=== PATIENT | female | born 1945 | race Caucasian/White ===

== ENCOUNTER → 2022-01-27 12:58 | Outpatient (CLI) | payer MEDICARE, BC, OTHER, SELFPAY ==
[2022-01-27 16:43] LABS: COVID19 -Nasal RAPID Negative (Negative)
== END ==
PROVIDERS: Visit Provider Nurse Practitioner Family
DX: Z20.822 Contact with and (suspected) exposure to COVID-19 (principal)
CPT/HCPCS: 87635; C9803

== ENCOUNTER 2022-01-28 09:03 | Day surgery (SDC) | payer MEDICARE, BC, OTHER, SELFPAY ==
[2022-01-20 09:49] VITALS: BMI 37.1
[2022-01-28] VITALS (15 sets, daily range): BP systolic 121–158; BP diastolic 48–79; PULSE 48–64; RESP 11–18; TEMP 35.8–36.6; O2SAT 92–100; BMI 37.1
--- NOTE | 2022-01-28 06:00 | DI.RAD.S_ITS ---
PROCEDURE: XR KNEE LT 1TO2V INDICATIONS: left TKA TECHNIQUE: 2 view(s) of the knee acquired. COMPARISON: None. FINDINGS: Bones: Patient is status post knee joint arthroplasty. Hardware components are in expected positions. Visualized bony structures are intact. Soft tissues: Overlying postoperative changes are noted. IMPRESSION: Postop changes from left total knee arthroplasty with anatomic left knee alignment. Dictated by: Robert Arnold M.D. on 01/28/2022 at 14:55 Approved by: Robert Arnold M.D. on 01/28/2022 at 14:55
[2022-01-28] MEDS: ACETAMINOPHEN 325 MG TABLET 975 MG PO (10:28)
[2022-01-28] MEDS: VANCOMYCIN 1,000 MG/200 ML PIGGYBACK 200 MG IV (10:30)
--- NOTE | 2022-01-28 10:43 | PM.PREOP ---
Pre-operative Note COVID-19 COVID-19 status: Negative Interval Note History & Physical reviewed/Exam performed by Physician: Yes Changes to H&P: No
--- NOTE | 2022-01-28 10:56 | PM.OP.1 ---
Operative Date/Time/Diagnoses Date of procedure: 01/28/22 Time of procedure: 11:30 Pre-op diagnosis: left knee OA Post-op diagnosis: same Procedure & Clinicians Procedure: Left total knee arthroplasty Same procedure as scheduled: Yes Indications: The patient has had progressively worsening left knee pain with radiographic changes consistent with arthritis. Non-operative management has failed and the patient has requested total knee replacement. The risks, benefits and alternatives to surgery were discussed with the patient prior to proceeding. Risks discussed included, but were not limited to, failure to relieve pain, stiffness, infection, nerve damage, deep venous thrombosis, pulmonary embolism, stroke, coma, heart attack, permanent paralysis and , as well as the potential need for eventual revision of the prosthetic. Surgeon: Roya Beatty Fuel Buyer: Herlinda Curran Anesthesia Type: General and Spinal Operative Notes Findings: Severe left knee osteoarthritis, adequate stability Closure Type: primary Specimen(s): none sent Prosthetic devices, grafts, tissues, transplants, or devices: Journey BCS 2 size 5 femur, size 5 tibia, +10 poly, 35 mm patella Applied: drain(s) Estimated Blood Loss (mL): 250 Blood products transfused: none Tourniquet time (min): 85 Procedure in detail: The patient was seen in the pre-operative area, where the patient identified the left knee as the operative site and this was marked with my initials. The patient received pre-operative antibiotics, and was taken to the operating room and placed on the operative table in the supine position. After satisfactory anesthesia, a multimedia programmer out was performed. The left leg was encircled with a tourniquet about the proximal thigh, and the leg was prepared from the toes to the tourniquet with ChloroPrep in the usual fashion and draped through sterile drapes. The leg was elevated and exsanguinated with Eschmark bandage and the tourniquet inflated to [250] mmHg pressure. The knee was approached through an approximately 18 cm incision centered over the patella and carried into the knee through a medial parapatellar arthrotomy. A portion of the medial and lateral meniscus was resected. Soft tissue was carefully mobilized around the patella the patella was measured with a caliper. Bone was resected from the patella and the patellar height was reconstituted with up an appropriate sized patellar component. A cover was then placed on the patella. A small amount of additional medial and lateral meniscus was resected. The distal femur was cut at 5?. A [+2] cut was used. It looked like an appropriate distal femoral cut and the cut was made without difficulty. An extramedullary guide was used for the tibial cut. 10 mm was resected off the least affected side.The tibia was prepared. The rotation was assessed. The patient was placed in extension residual medial and lateral meniscus as well as any residual bone was carefully resected. [No] additional tibia was resected. Hemostasis was achieved especially posteriorly. Additional local was injected into the posterior capsule. The extension gap was assessed and additional releases for gap balancing were performed as necessary. It was checked with the gap sorting cows worker. The femoral component was trial was placed and the notch was finished. The rotation was assessed and the appropriate size femoral guide was placed on the distal femur and finishing cuts were made. There was no evidence of notching. The anterior, posterior and chamfer cuts were then made. The posterior osteophytes and soft tissues were then removed. The posterior capsule was injected with part of a mixture of 60 ml 0.25% Marcaine mixed with 20 ml Exparel for post operative pain control. The remainder of this mixture was injected into the capsule and subcutaneous tissues during cement curing. The tibial and femoral components were then placed and the knee placed through a range of motion. Range of motion was [0-130], with good stability throughout the range. The trials were then removed, and the tibia was finished. The bone was prepared with pulsatile lavage, and dried with a sponge. Cement was applied and the final prosthetics placed. Excess cement was removed during and after cement curing. A brief Betadine soak was performed. After confirming there was no extruded cement posteriorly, the final tibial insert was placed. The knee was copiously irrigated and the tourniquet deflated. Hemostasis was obtained with the Bovie. A drain was placed and brought out superolaterally. The capsule was closed with interrupted nonabsorbable suture. The subcutaneous layer was closed with barbed sutures, and the skin with a running 3-0 V-Lock suture and Surgical glue. An P cupdressing was applied and the patient was taken to recovery having tolerated the procedure well. Complications: none Post-operative Condition: stable Disposition: Acute Care Plan for aftercare: The patient will be maintained on a standard total knee replacement protocol with weight bearing as tolerated. The patient will receive Eliquis and sequential compression devices for DVT prophylaxis. The patient will be discharged home when safe for the home environment.
[2022-01-28] MEDS: CEFAZOLIN 2 GM/20 ML SYRINGE IV ×2 (11:57→20:15)
[2022-01-28] MEDS: TRANEXAMIC ACID 1,000 MG VIAL 2000 MG INJ ×2 (11:59→13:41)
--- NOTE | 2022-01-28 12:17 | SUR.OPER ---
Supine on padded OR bed. Pillow under head, arms secured on padded armboards <90 degree abduction. Safety belt across torso. Non-operative leg secured with tape over blanket over lower leg. Operative leg secured in DeMayo/Ajit/Nathe positioner. Foam padded brace at thigh of operative leg.
[2022-01-28] MEDS: BUPIVACAINE LIPOSOME 266 MG/20 ML VIAL INJ (12:26)
[2022-01-28] MEDS: BUPIVACAINE 0.25% (PF) 60 ML, EPINEPHrine 0.3 MG INJ (12:26)
[2022-01-28] MEDS: LACTATED RINGERS 1,000 ML 42 ML IV (12:43)
[2022-01-28] MEDS: HYDROMORPHONE 2 MG INJ 0.5 MG IV ×4 (14:30→14:59)
[2022-01-28] MEDS: ONDANSETRON 4 MG/2 ML INJ IV (14:30)
[2022-01-28] MEDS: LACTATED RINGERS 1,000 ML 100 ML IV (15:40)
[2022-01-28] MEDS: HYDROMORPHONE 2 MG TABLET PO (16:03)
[2022-01-28] MEDS: ACETAMINOPHEN 325 MG TABLET 650 MG PO ×2 (16:03→20:26)
[2022-01-28] MEDS: IBUPROFEN 400 MG TABLET PO ×2 (18:44→20:25)
--- NOTE | 2022-01-28 19:45 | PC.NURSE ---
Pt arrived from PACU at 1535 A&Ox3, slightly lethargic, easily awakened but dozing off. She initially c/o pain to L knee and is medicated with PRN mediations with good effect, later she reports heaviness to LLE, able to wiggle toes, ankle waves and +CMS to LLE. She tolerates about 25% of dinner, she is placed on 2 L NC. RT notified of SRINIVASA with CPAP machine. Endorsed to oncoming shift patient not yet voided since arriving from PACU. VSS, afebrile. Pt using IS this evening. IVF LR at 100 ml/hr.
[2022-01-28] MEDS: SODIUM CHLORIDE 0.9% FLUSH 10 ML IV (20:15)
[2022-01-28] MEDS: DOCUSATE 100 MG CAPSULE PO (20:26)
[2022-01-29 01:11] VITALS: BP 129/57; PULSE 57; RESP 16; TEMP 36.5; O2SAT 100
[2022-01-29] MEDS: IBUPROFEN 400 MG TABLET PO ×3 (04:37→12:44)
[2022-01-29] MEDS: CEFAZOLIN 2 GM/20 ML SYRINGE IV (04:39)
[2022-01-29] MEDS: LACTATED RINGERS 1,000 ML 100 ML IV (04:47)
[2022-01-29 06:26] VITALS: BP 126/54; PULSE 56; RESP 15; TEMP 36; O2SAT 98
[2022-01-29 06:30] LABS: Hematocrit 33.6 % (36-46); Hemoglobin 11.1 g/dL (12.0-16.0)
--- NOTE | 2022-01-29 07:00 | PC.NURSE ---
Pt unable to urinate, straight cath produced 350 mls clear, yellow urine.
--- NOTE | 2022-01-29 07:57 | PM.PNPO.1 ---
Subjective Subjective Date Patient Seen: 01/29/22 Time Patient Seen: 07:57 Interval history: Pain is moderate. Denies fever or chills. No nausea or vomiting. Exam Vital Signs (past 8 hours): - 01/29/22 01:11 01/29/22 06:26 Temperature 97.7 F 96.8 F L Pulse Rate 57 L 56 L Respiratory Rate 16 15 Blood Pressure 129/57 L 126/54 L Pulse Oximetry 100 98 Oxygen Delivery Method Nasal Cannula Oxygen Flow Rate 0 Narrative Exam Narrative: 77-year-old female resting comfortably in bed in no apparent distress. Dressing is Clean, dry, intact.. Motor functions intact bilateral lower extremities. Sensation grossly intact to light touch bilateral lower extremities. Const General: cooperative Nutritional Appearance: overweight (BMI 37) Orientation: alert and awake Resp Effort & Inspection: normal respiratory effort Objective Labs Result Diagrams: 01/29/22 05:56 Labs: Laboratory Results - last 24 hr 01/29/22 05:56 Hgb 11.1 L Hct 33.6 L PFSH Medical History Afib Depression Diabetes DJD (degenerative joint disease) Hearing loss HTN (hypertension) Neuropathy Osteoarthritis Skin cancer Sleep apnea Vertigo Surgical History History of carpal tunnel surgery of right wrist Hx of cholecystectomy Hx of thumb surgery Social History household members: spouse and children Smoking Status: Never smoker alcohol intake: former Assessment & Plan Post-op Postoperative Procedures: Procedures Operation Date: 01/28/22 11:15 Actual Procedure Side Surgeon p Total Knee Arthroplasty Left Roya Beatty MD Postoperative day: 1 Postoperative status: doing well Postoperative status narrative: Patient progressing as expected status post total knee replacement, left Postoperative plan narrative: Multimodal pain management Mobilize with physical therapy Patient will be maintained on standard total knee replacement protocol with weight-bearing as tolerated. Eliquis and SCDs for DVT prophylaxis. Possible discharge home today or tomorrow Quality VTE Deep Vein Thrombosis/Pulmonary Embolism Present on Admission: No
[2022-01-29] MEDS: ACETAMINOPHEN 325 MG TABLET 650 MG PO ×2 (09:03→15:26)
[2022-01-29] MEDS: FUROSEMIDE 20 MG TABLET PO (09:04)
[2022-01-29] MEDS: LOSARTAN 25 MG TABLET PO (09:04)
[2022-01-29] MEDS: METOPROLOL ER 25 MG TABLET PO (09:04)
[2022-01-29] MEDS: POTASSIUM CHLORIDE 20 MEQ TAB PO (09:04)
[2022-01-29] MEDS: METFORMIN XR 500 MG TABLET 750 MG PO (09:05)
[2022-01-29] MEDS: DOCUSATE 100 MG CAPSULE PO (09:05)
[2022-01-29] MEDS: OXYCODONE IR 5 MG TABLET PO (09:07)
[2022-01-29] MEDS: SODIUM CHLORIDE 0.9% FLUSH 10 ML IV (09:12)
[2022-01-29] MEDS: MAGNESIUM OXIDE 400 MG TABLET 800 MG PO (09:13)
[2022-01-29 09:36] VITALS: BP 145/73; PULSE 60
--- NOTE | 2022-01-29 10:15 | PT.IIE ---
Current Diagnoses Unilateral primary osteoarthritis, left knee (01/28/22) Surgery Performed Operation Date: 01/28/22 11:15 Actual Procedures p Total Knee Arthroplasty(Left) - Roya Beatty MD Medical History (Last Reviewed 01/29/22 @ 07:58 by Rad Roth PA-C) Afib Depression Diabetes DJD (degenerative joint disease) Hearing loss HTN (hypertension) Neuropathy Osteoarthritis Skin cancer Sleep apnea Vertigo Physical Therapy Inpatient Evaluation/Re-Eval M1 PT/OT-IP Prior Functional Status Start: 01/29/22 12:45 Freq: NEEDED Status: Active Protocol: Document 01/29/22 10:15 AB (Rec: 01/29/22 12:57 AB [id number]) Medical Review Prior Functional Status Medical History Reviewed Yes Communication able to make needs known Mobility and Gait pt stated that she is modified independent with all mobilities and ambulation without AD but tends to furniture cruise and stated that when she is outdoors, she is very cautious with walking Social History Household Members spouse Living Arrangements House Number of Floors (Floors) Two Floors Number of Stairs To Enter/Railing? lives on a split level house: 13 steps with R rail ascending to get to main level of the house where pt will stay Home Environment Standard Height Toilet,Walk in Shower Home Equipment Front Wheel Walker,Straight Cane,Raised Toilet Seat w/ Armrests,Shower Seat with Backrest,Hand Held Shower Employment Status Retired Additional Social History Comment stated that her son will stay for a few days to assist her as well M2 PT-IP Current Condition Start: 01/29/22 12:45 Freq: NEEDED Status: Active Protocol: Document 01/29/22 10:15 AB (Rec: 01/29/22 12:57 AB [id number]) Physical Therapy Current Condition Current Condition Evaluation Date 01/29/22 Treatment Diagnosis s/p L TKA; difficulty in walking Onset Date 01/28/22 M3 PT-IP Subjective Start: 01/29/22 12:45 Freq: NEEDED Status: Active Protocol: Document 01/29/22 10:15 AB (Rec: 01/29/22 12:57 AB [id number]) Subjective Physical Therapy Visit Type Type Initial Evaluation Visit Start Time 10:15 Visit Stop Time 10:50 Total Visit Minutes 35 Number of BULB PACKER Visits 0 Physical Therapy Visit Comments Patient Comments agreeable to do PT Therapy Pain Assessment Pain When Pain Assessed At Rest Pain Present Pain Present Pain Reported Location Left Knee Intensity 2 Scale Used increases to 7/10 with mobility Pain Behaviors Facial Grimacing,Guarding, Holding Area Pain Management Techniques Modification of Treatment,Re- positioning,Timing of Activity with Medications M4 PT-IP Mobility and Gait Start: 01/29/22 12:45 Freq: NEEDED Status: Active Protocol: Document 01/29/22 10:15 AB (Rec: 01/29/22 12:57 AB [id number]) PT-Bed Mobility Assessment Supine to Sit Supine to Sit Standby Assistance PT-Transfer Assessment Sit to and From Stand Sit to and from Stand Moderate Assistance,1 Person Assistance,Use of Upper Extremities Equipment Transfer Assistive Device Gait Belt,Front Wheeled Walker Orthotic/Prosthetic Devices or Brace: No Transfers Transfer Destination Bed,Toilet Transfer Technique ambulated Transfer Ability Level of Assist Moderate Assistance,1 Person Assistance,Use of Upper Extremities Comments Mobility Comments pt completed supine to sit SBA . able to sit on EOB SBA. completed sit to stand mod A and cues. ambulated in room ~ 20 ft using FWW mod A and cues with slight L knee buckling and cued for quads activation. pt also presents with heavy UE weight bearing on FWW for support. pt sat on chair. c/o increase pain. pt then requested to use the toilet. completed sit to stand from the chair mod A and ambulated to the toilet using FWW mod A and cues. positioned call light next to pt and instructed to ask for assistance when ready and pt understood. informed NAC that pt is using the toilet. Gait Assessment Gait Gait Assistance Required: Moderate Assistance Distance (Feet) 20 Able to Maintain Weight Bearing Status Yes During Gait Assistive Devices Assistive Device Gait Belt,Front Wheeled Walker Orthotic/Prosthetic Devices or Brace: No Gait Deviations General Gait Pattern Decreased Stride Length, Decreased Feet Clearance,Step- to Gait Factors Limiting Gait Function Factors Limiting Gait Function Decreased Activity Tolerance, Decreased Sensation,Decreased Strength,Limited Range of Motion,Pain,Poor Balance,Poor Safety Awareness PT-Balance Assessment Sitting Balance and Reactions Static Sitting Balance Ability Good Dynamic Sitting Balance Ability Good Standing Balance and Reactions Static Standing Balance Ability Fair Dynamic Standing Balance Ability Poor Device Used FWW M5 PT-IP Objective Assessments Start: 01/29/22 12:45 Freq: NEEDED Status: Active Protocol: Document 01/29/22 10:15 AB (Rec: 01/29/22 12:57 AB [id number]) Orientation Orientation/Cognition Level of Alertness Alert Orientation Name,Place,Situation Language Function Ability No Deficits Noted Safety Awareness Decreased Safety Awareness Memory Description Short Term Impaired Gross Range of Motion Lower Extremity ROM Impairments L knee flexion: ~ 30 deg L knee extension: ~ 20 deg less to 0 Strength Lower Extremity Strength Assessment Left Impaired Hip 3+/5 Knee 3-/5 Sensation Assessment Sensation Gross Sensation Right LE Impaired,Left LE Impaired Light Touch Impaired Proprioception (Position) Impaired Sensation Description Numbness Comments Sensation Comments neuropathy on BLE from hips down to B feet Muscle Tone Muscle Tone WNL Yes M6 PT-IP Treatment Start: 01/29/22 12:45 Freq: NEEDED Status: Active Protocol: Document 01/29/22 10:15 AB (Rec: 01/29/22 12:57 AB [id number]) Physical Therapy Treatment Education Education Provided Precautions,Weight Bearing Status,Post-Op Packet,Safety M7 PT-IP Assessment and Plan Start: 01/29/22 12:45 Freq: NEEDED Status: Active Protocol: Document 01/29/22 10:15 AB (Rec: 01/29/22 12:57 AB [email or web address]) PT Summary Assessment and Plan Potential Rehabilitation Potential Fair Status of Condition at Evaluation Evolving Summary Impairments Pain,ROM,Strength,Balance, Coordination,Sensation,Tone, Cognition,Bed Mobility, Transfers,Gait,Activity Tolerance Assessment Summary pt requiring mod A with moblity using FWW with slight buckling on L knee during standing and ambulation requiring cues for quads activation. caregiver training set up for this afternoon at 130 pm. will continue to assess progress for safe d/c plan. Goals Bed Mobility Goal Independent Transfer Goal Standby Assistance,Front Wheeled Walker Gait Goal Standby Assistance,Front Wheel Walker Gait Distance 250 Other Goals up/down 13 steps R rail SBA Days to Meet Goals 5 Frequency of Treatment Frequency Of Treatment Twice a Day Treatment Plan Physical Therapy Treatment Plan Bed Mobility Training,Transfer Training,Gait Training, Therapeutic Exercise,Balance Retraining,Post Op Education, Discharge Planning,Hot or Cold Pack,Neuromuscular Re-ed, Coordination Retraining,Manual Therapy Other Recommendations and Next Treatment caregiver trainin/23 @ Focus 130pm Weight Bearing Status Weight Bearing Status Weight Bear as Tolerated Allowed Weight Bearing Amount (enter % LLE WBAT or #) (%) Recommendations To Nursing Amount of Assist Needed 1 Person Assist Discharge Recommendations PT Discharge Recommendations Home with 01/06 Assist Available,Home Health Transportation Needs at Discharge Private Vehicle,Wheelchair/ Cabulance
[2022-01-29 11:51] VITALS: BP 141/57; PULSE 53; RESP 17; TEMP 36.7; O2SAT 98
--- NOTE | 2022-01-29 12:37 | PM.DS.1 ---
History of Present Illness History of Present Illness Date Patient Seen: 01/29/22 Time Patient Seen: 08:00 Chief complaint: Knee pain Narrative: See progress note Discharge Providers Provider Discharge Date: 01/29/22 Primary care physician: Antonia Urbano MD Consults: 01/28/22 06:00 Consult to Anesthesiology Routine Comment: Consulting Provider: Anesthesiologist Reason for consultation: Regional block for post operative pain control 01/28/22 14:44 Consult to Discharge Planning Routine Comment: Consult to Physical Therapy Evaluate & Treat Comment: Physician Instructions: postop TKA protocol Consult to Respiratory Therapy Evaluate & Treat Comment: Physician Instructions: Evaluate and treat Discharge provider: Rad Roth PA-C Summary Hospital Course Discharge Diagnosis: Severe left knee osteoarthritis Hospital Course: Left total knee arthroplasty Same procedure as scheduled: Yes Indications: The patient has had progressively worsening left knee pain with radiographic changes consistent with arthritis. Non-operative management has failed and the patient has requested total knee replacement. The risks, benefits and alternatives to surgery were discussed with the patient prior to proceeding. Risks discussed included, but were not limited to, failure to relieve pain, stiffness, infection, nerve damage, deep venous thrombosis, pulmonary embolism, stroke, coma, heart attack, permanent paralysis and , as well as the potential need for eventual revision of the prosthetic. Surgeon: Roya Beatty Digital Imaging Technician: Herlinda Curran Anesthesia Type: General and Spinal Operative Notes Findings: Severe left knee osteoarthritis, adequate stability Closure Type: primary Specimen(s): none sent Prosthetic devices, grafts, tissues, transplants, or devices: Journey BCS 2 size 5 femur, size 5 tibia, +10 poly, 35 mm patella Applied: drain(s) Estimated Blood Loss (mL): 250 Blood products transfused: none Tourniquet time (min): 85 Patient mid to the hospital for left total knee arthroplasty. Patient consented to the same. Patient taken operating room on January 28, 2022. Patient back in her room recovering well as in stable condition. Patient will be discharged home today after physical therapy if safe for home environment. Status at Discharge Cognitive/behavioral status at discharge: at baseline, oriented Functional status at discharge: uses cane/walker Overall status at discharge: patient is progressing back to baseline Exam Vital Signs (past 8 hours): - 01/29/22 06:26 01/29/22 09:36 01/29/22 11:51 Temperature 96.8 F L 98.0 F Pulse Rate 56 L 60 53 L Respiratory Rate 15 17 Blood Pressure 126/54 L 145/73 H 141/57 H Pulse Oximetry 98 98 Oxygen Delivery Method Nasal Cannula Oxygen Flow Rate 0 Narrative Exam Narrative: See progress note Objective Labs Result Diagrams: 01/29/22 05:56 Labs: Laboratory Results - last 24 hr 01/29/22 05:56 Hgb 11.1 L Hct 33.6 L PFSH Medical History Afib Depression Diabetes DJD (degenerative joint disease) Hearing loss HTN (hypertension) Neuropathy Osteoarthritis Skin cancer Sleep apnea Vertigo Surgical History History of carpal tunnel surgery of right wrist Hx of cholecystectomy Hx of thumb surgery Social History household members: spouse and children Smoking Status: Never smoker alcohol intake: former Discharge Assessment & Plan Assessment and Plan Assessment: Stable status post left total knee arthroplasty Plan of Treatment: Discharge home today after physical therapy if safe for home environment Discharge Plan Discharge Plan Patient Disposition: Home Discharge orders & Medications Discharge Orders: Discharge (Order); Ordered 01/29/22 Ordered By: Rad Roth Prescriptions: New polyethylene glycol 3350 17 gram Powder In Packet 17 gm PO DAILY PRN (Reason: Constipation) Qty: 20 0RF ibuprofen 400 mg Tablet 400 mg PO Q4HR Qty: 60 0RF oxycodone 10 mg Tablet 10 mg PO Q3HR PRN (Reason: Pain, Severe (7-10)) Qty: 60 0RF Continued telmisartan 20 mg Tablet 20 mg PO DAILY 0RF furosemide 20 mg Tablet 20 mg PO DAILY 0RF metoprolol succinate 25 mg Tablet Extended Release 24 Hr 25 mg PO BID 0RF dofetilide 500 mcg Capsule 500 mcg PO Q12H 0RF Label Comments: Pt takes at 0900 & 2100 metformin 750 mg Tablet Extended Release 24 Hr 750 mg PO DAILY 0RF Eliquis 5 mg Tablet 5 mg PO BID 0RF potassium chloride 20 mEq Tablet Extended Release 20 meq PO DAILY 0RF magnesium oxide 400 mg magnesium Tablet 800 mg PO DAILY 0RF Follow up/Referrals: Antonia Urbano MD [Primary Care Provider] - Roya Beatty MD [Physician] - As previously scheduled (Follow up w/ Dr Beatty on 02/12/2022 @ 1:30 pm at [facility] office in [place].) Diet/Activity/Treatments Diet: Diet as Tolerated Activity: Walk frequently! Cold/Heat Therapy: Ice to knee as needed for pain. Skin/Wound/Dressing Care Report to your healthcare provider any signs of infection, such as:: chills, fever, night sweats, increased pain, unusual drainage and unusual redness Dressing: May shower. Leave dressing in place until follow up appointment. When battery expires after several days, you may detach the battery pack and throw it away. No bathing or otherwise soaking incision. Call office if dressing becomes saturated inside. Visit Report/Discharge Packet Instructions: DI for Knee Replacement Stand Alone Forms: Surgery Discharge Discharge Data Primary Care Provider: Antonia Urbano Attending Provider: Roya Beatty Quality VTE Deep Vein Thrombosis/Pulmonary Embolism Present on Admission: No
[2022-01-29] MEDS: OXYCODONE IR 10 MG TABLET PO ×2 (12:44→15:26)
--- NOTE | 2022-01-29 13:38 | PT.IPTN ---
Current Diagnoses Unilateral primary osteoarthritis, left knee (01/28/22) Surgery Performed Operation Date: 01/28/22 11:15 Actual Procedures p Total Knee Arthroplasty(Left) - Roya Beatty MD Physical Therapy Treatment Note M2 PT-IP Current Condition Start: 01/29/22 12:45 Freq: NEEDED Status: Discharge Protocol: Document 01/29/22 10:15 AB (Rec: 01/29/22 12:57 AB [id number]) Physical Therapy Current Condition Current Condition Evaluation Date 01/29/22 Treatment Diagnosis s/p L TKA; difficulty in walking Onset Date 01/28/22 M3 PT-IP Subjective Start: 01/29/22 12:45 Freq: NEEDED Status: Discharge Protocol: Document 01/29/22 13:38 AB (Rec: 01/29/22 17:24 AB [id number]) Subjective Physical Therapy Visit Type Type Treatment Note Visit Start Time 13:38 Visit Stop Time 14:40 Total Visit Minutes 62 Number of EPIDEMIOLOGY INTERN Visits 0 Physical Therapy Visit Comments Patient Comments agreeable to do PT; spouse in room for caregiver training Therapy Pain Assessment Pain When Pain Assessed At Rest Pain Present Pain Present Pain Reported Location Left Knee Intensity 4 Scale Used increases to 7/10 with mobility Pain Management Techniques Apply Cold,Distraction, Elevation,Modification of Treatment,Re-positioning, Timing of Activity with Medications M4 PT-IP Mobility and Gait Start: 01/29/22 12:45 Freq: NEEDED Status: Discharge Protocol: Document 01/29/22 13:38 AB (Rec: 01/29/22 17:24 AB [id number]) PT-Bed Mobility Assessment Supine to Sit Supine to Sit Minimal Assistance Sit to Supine Sit to Supine Minimal Assistance PT-Transfer Assessment Sit to and From Stand Sit to and from Stand Minimal Assistance,1 Person Assistance,Use of Upper Extremities Equipment Transfer Assistive Device Gait Belt,Front Wheeled Walker Orthotic/Prosthetic Devices or Brace: No Transfers Transfer Destination Bed,Chair Transfer Technique ambulated Transfer Ability Level of Assist Minimal Assistance,1 Person Assistance,Use of Upper Extremities Comments Mobility Comments pt sitting on chair and spouse in room for caregiver training. educated spouse on use of safety belt and how to assist pt. spouse was able to put safety belt on pt. completed sit to stand and spouse assisting but pt cueing . pt ambulated to the bed ~ 12 ft using FWW min A with spouse assisting. educated spouse to cue and how to assist pt. spouse assisted pt with sit to stand from EOB and ambulated with pt ~ 50 ft using FWW min A. assisted pt towards the stair. educated on stiar climbing technique. pt completed up/down steps holding on to R rail with B hands mod A and cues with PT assisting first. pt cued for L quads activation. educated spouse on how to assist pt. pt completed up/down steps again with spouse assisting and completed. pt with increase pain limiting mobility. informed spouse to put a chair in the landing of the steps for pt to rest on and agreed. assisted pt back to her room. ambulated from w/ c to bed using fWW min A. completed sit <>supine and spouse assisted. pt completed transfer to chair using FWW min A. positioned pt on chair . call light and table placed within reach. pt and spouse without any further concerns. Gait Assessment Gait Gait Assistance Required: Minimum Assistance Distance (Feet) 50 Able to Maintain Weight Bearing Status Yes During Gait Assistive Devices Assistive Device Gait Belt,Front Wheeled Walker Orthotic/Prosthetic Devices or Brace: No Gait Deviations General Gait Pattern Antalgic,Decreased Stride Length,Decreased Feet Clearance Factors Limiting Gait Function Factors Limiting Gait Function Decreased Activity Tolerance, Decreased Strength,Limited Range of Motion,Pain,Poor Balance,Poor Safety Awareness Stair Climbing Assessment Evaluation Level of Assist On Stairs Moderate Assistance Devices Stair Climbing Assistive Devices Right Railing Technique/Endurance Stair Climbing Direction Ascend and Descend Stair Climbing Technique Step to Step Number of Steps Climbed 3 Stair Climbing Set # Repetitions (reps) 2 M5 PT-IP Objective Assessments Start: 01/29/22 12:45 Freq: NEEDED Status: Discharge Protocol: Document 01/29/22 10:15 AB (Rec: 01/29/22 12:57 AB [id number]) Orientation Orientation/Cognition Level of Alertness Alert Orientation Name,Place,Situation Language Function Ability No Deficits Noted Safety Awareness Decreased Safety Awareness Memory Description Short Term Impaired Gross Range of Motion Lower Extremity ROM Impairments L knee flexion: ~ 30 deg L knee extension: ~ 20 deg less to 0 Strength Lower Extremity Strength Assessment Left Impaired Hip 3+/5 Knee 3-/5 Sensation Assessment Sensation Gross Sensation Right LE Impaired,Left LE Impaired Light Touch Impaired Proprioception (Position) Impaired Sensation Description Numbness Comments Sensation Comments neuropathy on BLE from hips down to B feet Muscle Tone Muscle Tone WNL Yes M6 PT-IP Treatment Start: 01/29/22 12:45 Freq: NEEDED Status: Discharge Protocol: Document 01/29/22 13:38 AB (Rec: 01/29/22 17:24 AB [id number]) Physical Therapy Treatment Education Education Provided Safety M7 PT-IP Assessment and Plan Start: 01/29/22 12:45 Freq: NEEDED Status: Discharge Protocol: Document 01/29/22 13:38 AB (Rec: 01/29/22 17:24 AB [email or web address]) PT Summary Assessment and Plan Potential Rehabilitation Potential Good Summary Impairments Pain,ROM,Strength,Balance, Coordination,Sensation,Tone, Cognition,Bed Mobility, Transfers,Gait,Activity Tolerance Progress Towards Goals Slow Progress due to Pain Assessment Summary caregiver training conducted and spouse was able to assist pt safely. pt and spouse without any other concerns. Goals Bed Mobility Goal Independent Transfer Goal Standby Assistance,Front Wheeled Walker Gait Goal Standby Assistance,Front Wheel Walker Gait Distance 250 Other Goals up/down 13 steps R rail SBA Days to Meet Goals 5 Frequency of Treatment Frequency Of Treatment Twice a Day Treatment Plan Physical Therapy Treatment Plan Bed Mobility Training,Transfer Training,Gait Training, Therapeutic Exercise,Balance Retraining,Post Op Education, Discharge Planning,Hot or Cold Pack,Neuromuscular Re-ed, Coordination Retraining,Manual Therapy Weight Bearing Status Weight Bearing Status Weight Bear as Tolerated Allowed Weight Bearing Amount (enter % LLE WBAT or #) (%) Recommendations To Nursing Amount of Assist Needed 1 Person Assist Discharge Recommendations PT Discharge Recommendations Home with 01/06 Assist Available,Home Health Transportation Needs at Discharge Private Vehicle,Wheelchair/ Cabulance
--- NOTE | 2022-01-29 15:47 | PC.NURSE ---
Day shift: Paperwork signed and all questions answered. Pt has all personal belongings. scripts sent electronic to [facility] in [place] after conversation w/ DANILO Roth. RASHEED and Zane remains CDI and green lite flashes. CMS intact. Pt has all personal belongings. Pt left unit via WC at approx 1650. Her spouse is driving her home. JOHN Ulloa is helping Pt to her car.
== END 2022-01-29 15:51 | disposition home or self-care (01) ==
LOC: OR 09:07 → AC 09:08
PROVIDERS: PCP Internal Medicine; Referring Provider Orthopaedic Surgery; Visit Provider Orthopaedic Surgery
PROC: 0SRD0JZ Replacement of Left Knee Joint with Synthetic Substitute, Open Approach (ICD-10-PCS; CPT 27447; principal; 2022-01-28 11:15)
DX: M17.12 Unilateral primary osteoarthritis, left knee (principal); G47.33 Obstructive sleep apnea (adult) (pediatric); E11.9 Type 2 diabetes mellitus without complications; I10 Essential (primary) hypertension; Z79.84 Long term (current) use of oral hypoglycemic drugs
CPT/HCPCS: 27447; 36415; 73560; 82962; 85014; 85018; 97162; 97530; C1776; C1713; C9290; J0171; J0690; J1170; J1885; J2250; J2274; J2405; J2704; J3010

== ENCOUNTER 2023-09-01 12:37 | Emergency (ER) | payer MEDICARE, BC, OTHER, SELFPAY ==
[2022-01-28 17:20] VITALS: BMI 37.1
[2023-09-01] VITALS (10 sets, daily range): BP systolic 154–196; BP diastolic 70–86; PULSE 62–68; RESP 12–18; TEMP 36.6; O2SAT 94–99; BMI 37.1
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
[2023-09-01] MEDS: METOCLOPRAMIDE 10 MG/2 ML INJ IV (14:17)
[2023-09-01] MEDS: ACETAMINOPHEN 325 MG TABLET 975 MG PO (14:18)
[2023-09-01] MEDS: SODIUM CHLORIDE 0.9% 1,000 ML 500 ML IV (14:19)
[2023-09-01] MEDS: MECLIZINE HCL 12.5 MG TABLET 25 MG PO (14:19)
--- NOTE | 2023-09-01 15:44 | DI.CT.S_ITS ---
PROCEDURE: CT HEAD/BRAIN WO CON INDICATIONS: headache, dizziness TECHNIQUE: Noncontrast 4.5 mm thick angled axial sections acquired from the foramen magnum to the vertex, with coronal and sagittal reformats. For radiation dose reduction, the following was used: automated exposure control, adjustment of mA and/or kV according to patient size. COMPARISON: [facility], CT, CT ANGIO HEAD AND NECK, 07/19/2023, 6:59. [facility], CT, CT CERVICAL SPINE WITHOUT CONTRAST, 08/06/2023, 11:11. [facility], CT, CT HEAD WITHOUT CONTRAST, 08/06/2023, 10:43. FINDINGS: Image quality: Excellent. CSF spaces: Basal cisterns are patent. No extra-axial fluid collections. The ventricles are symmetric in size and shape. Brain: No intracranial bleeds or masses. There is cerebral volume loss for age, with resultant ventricular and sulcal prominence. There are periventricular and deep white matter chronic small vessel ischemic changes. There is intracranial internal carotid artery atherosclerosis. Skull and face: Calvarium and visualized facial bones appear intact, without suspicious lesions. Sinuses: There is an air-fluid level within the right maxillary sinus. The paranasal sinuses otherwise appear clear. IMPRESSION: No acute intracranial process is seen. No acute intracranial hemorrhage is seen. Focal right maxillary sinus disease, with an air-fluid level. The appearance is similar to 07/29/2023. Dictated by: Radames Pedro M.D. on 09/01/2023 at 15:15 Approved by: Radames Pedro M.D. on 09/01/2023 at 15:16
[2023-09-01] MEDS: FLUTICASONE 120 SPRAY/16 GM SPRAY.SUSP NASAL (17:02)
[2023-09-01] MEDS: KETOROLAC 30 MG/ML VIAL 15 MG IV (17:02)
== END 2023-09-01 17:13 | disposition home or self-care (01) ==
PROVIDERS: Emergency Provider Student in an Organized Health Care Education/Training Program; PCP Internal Medicine
DX: R42 Dizziness and giddiness (principal); J32.0 Chronic maxillary sinusitis; R07.9 Chest pain, unspecified
CPT/HCPCS: 36415; 70450; 93005; 93010; 96361; 96374; 96375; 99284; J1885; J2765

== ENCOUNTER 2024-08-24 13:31 | Emergency (ER) | payer MEDICARE, BC, OTHER, SELFPAY ==
[2022-01-28 17:20] VITALS: BMI 37.1
[2024-08-24 13:43] VITALS: BP 185/82; PULSE 60; RESP 16; TEMP 36.4; O2SAT 97; BMI 38.7
--- NOTE | 2024-08-24 13:51 | DI.CT.S_ITS ---
PROCEDURE: CT HEAD/BRAIN WO CON INDICATIONS: fall/hit head/on thinners/No LOC TECHNIQUE: Noncontrast 4.5 mm thick angled axial sections acquired from the foramen magnum to the vertex, with coronal and sagittal reformats. For radiation dose reduction, the following was used: automated exposure control, adjustment of mA and/or kV according to patient size. COMPARISON: [facility], CT, CT HEAD/BRAIN WO CON, 09/01/2023, 15:48. FINDINGS: Image quality: Diagnostic. CSF spaces: Basal cisterns are patent. No extra-axial fluid collections. The ventricles are symmetric in size and shape. Brain: No intracranial bleeds or masses. There is cerebral volume loss for age, with resultant ventricular and sulcal prominence. There are periventricular and deep white matter chronic small vessel ischemic changes. There is intracranial internal carotid artery atherosclerosis. Skull and face: Calvarium and visualized facial bones appear intact, without suspicious lesions. Sinuses: Small air-fluid level, right maxillary sinus, similar to previous. IMPRESSION: No acute intracranial pathology. Right maxillary sinus disease. Dictated by: Arian Malhotra M.D. on 08/24/2024 at 14:58 Approved by: Arian Malhotra M.D. on 08/24/2024 at 14:59
--- NOTE | 2024-08-24 13:51 | DI.CT.S_ITS ---
PROCEDURE: CT CERVICAL SPINE WO CON INDICATIONS: fall/hit head/on thinners/No LOC TECHNIQUE: Noncontrast 3 mm thick sections acquired from the skull base to the T4 level. Sagittal and coronal reformats were then constructed. For radiation dose reduction, the following was used: automated exposure control, adjustment of mA and/or kV according to patient size. COMPARISON: [facility], CT, CT CERVICAL SPINE WITHOUT CONTRAST, 08/06/2023, 11:11. FINDINGS: Image quality: Excellent. Bones: No fractures or dislocations. Visualized superior ribs are intact. Severe cervical spondylosis. Prominent pannus with associated calcifications at C1-C2 anterior articulation. Multilevel disc osteophyte complexes and multilevel canal stenosis and multilevel bony foraminal narrowing. Soft tissues: Prevertebral soft tissues are normal in thickness. No paravertebral hematomas. No apical pneumothoraces. IMPRESSION: No displaced fracture or traumatic subluxation. Severe cervical spondylosis. Dictated by: Arian Malhotra M.D. on 08/24/2024 at 14:54 Approved by: Arian Malhotra M.D. on 08/24/2024 at 14:57
--- NOTE | 2024-08-24 14:57 | ED_ITS ---
<Statement entered by Chung May, - 08/24/24 17:42> Dr. May: I was immediately available in the department for consultation. Documentation has been reviewed. I agree with assessment and plan. HPI - Fall General Chief Complaint: Trauma Stated Complaint: fall t-2, sent by pcp Time Seen by Provider: 08/24/24 14:57 Source: patient Mode of arrival: Ambulatory History of Present Illness HPI Narrative: 79-year-old female presents for evaluation following a mechanical fall that occurred Thursday night at her home. She reports no precipitating events she simply slipped on the bathroom floor stating she hit her bottom (buttocks) first, then her back and then the back of her head. Her sons were there and able to help her up. She denied any loss of consciousness, she contacted her PCP who redirected her here because she takes Eliquis for intermittent atrial fibrillation. She states she feels ?achy all over and a little more intense today? pointing to her mid left back. She is denying any headache, vision changes, hearing changes, neck stiffness or neck pain, no nausea, light- headedness, dizziness. She did try a heating pad in her recliner chair which did help somewhat. She has been taking Tylenol extra-strength which takes the edge off slightly. She also endorses some discomfort in her right upper shoulder and also points to her epigastrum. She states she is never sure if this pain is ?her atrial fibrillation or if it is heartburn?. She reports no disruption during sleep although she is a light sleeper. She is denying any issues with either of her upper or lower extremities, no numbness, tingling, weakness, no abdominal pain, she denies shortness of breath, chest pain. Last dose of Tylenol was earlier this morning. Her history is significant for hypertension, diabetes mellitus type 2, pacemaker, aortic valve replacement, cholecystectomy,mild OR last year, paroxysmal atrial fibrillation on Eliquis. All other systems are reviewed and are negative. Related Data Home Medications Medication Instructions Recorded Confirmed apixaban 5 mg tablet (Eliquis) 5 mg PO BID 01/20/22 01/28/22 dofetilide 500 mcg capsule 500 mcg PO Q12H A-fib 01/20/22 01/28/22 furosemide 20 mg tablet 20 mg PO DAILY 01/20/22 01/28/22 magnesium oxide 800 mg PO DAILY 01/20/22 01/28/22 metformin 750 mg tablet,extended 750 mg PO DAILY 01/20/22 01/28/22 release 24 hr metoprolol succinate 25 mg 25 mg PO BID 01/20/22 01/28/22 tablet,extended release 24 hr potassium chloride 20 mEq 20 meq PO DAILY 01/20/22 01/28/22 tablet,extended release telmisartan 20 mg tablet 20 mg PO DAILY 01/20/22 01/28/22 Previous Rx's Medication Instructions Recorded ibuprofen 400 mg tablet 400 mg PO Q4HR #60 tabs 01/29/22 oxycodone 10 mg tablet 10 mg PO Q3HR PRN Pain, Severe 01/29/22 (7-10) #60 tabs oxycodone 5 mg tablet 5 mg PO Q3H PRN pain #60 tabs 01/29/22 polyethylene glycol 3350 17 gram 17 gm PO DAILY PRN Constipation 01/29/22 oral powder packet #20 ea meclizine 25 mg tablet 25 mg PO QID #30 tabs 09/01/23 Allergies Allergy/AdvReac Type Severity Reaction Status Date / Time No Known Drug Allergies Allergy Verified 01/28/22 13:47 Review of Systems Review of Systems Narrative: All other systems reviewed and are negative. Patient History Medical History Vertigo Neuropathy Afib Hearing loss Diabetes Sleep apnea HTN (hypertension) Depression DJD (degenerative joint disease) Skin cancer Osteoarthritis Surgical History Hx of thumb surgery History of carpal tunnel surgery of right wrist Hx of cholecystectomy Social History household members: spouse Smoking Status: Never smoker alcohol intake: former Smoking Status: Never smoker Substance Use Type: does not use Exam Initial Vital Signs Initial Vital Signs: Vital Signs Temperature 97.6 F 08/24/24 13:43 Pulse Rate 60 08/24/24 13:43 Respiratory Rate 16 08/24/24 13:43 Blood Pressure 185/82 H 08/24/24 13:43 Pulse Oximetry 97 08/24/24 13:43 Oxygen Delivery Method Room Air 08/24/24 13:43 Vital signs reviewed and are normal except for elevated blood pressure reading in a known hypertension patient. Her heart rate is regularly radially. Const Other: Ambulatory, smiling, seated, no distress. Speech is clear, she is alert and oriented x4. [facility] Head: normal to inspection, normocephalic, atraumatic, No abrasion, No Balderas's sign, No contusion, No cranial bruits and No scalp tenderness Ears: hearing grossly normal bilaterally, external ears normal, TM's normal bilaterally, EAC's normal and mastoids normal Nose: external nose normal, nares normal and nasal mucous membranes and turbinates normal Face and sinus: normal facial exam, sinuses nontender and face symmetric Mouth: oral mucosae normal, lip normal, tongue normal, oropharynx normal and No mouth trauma Teeth and gingiva: dentition normal and gingiva normal Throat: posterior oropharynx normal and uvula midline Eyes General: Yes appearance normal, both eyes and all related structures Visual : normal visual by confrontation Alignment and Position: alignment normal Periorbital: periorbital findings normal Eyelids: eyelids normal Conjunctivae: conjunctivae normal Sclera: sclerae normal Pupils: PERRL EOM: EOM intact bilaterally Neck Neck: normal visual inspection, full ROM, trachea midline and supple Chest Chest: normal inspection of the chest Resp Effort & Inspection: normal respiratory effort and able to speak in complete sentences Auscultation: clear to auscultation bilaterally, no rales, no rhonchi and no wheezes Cardio Rate: regular rate Rhythm: regular rhythm Heart Sounds: murmur (Loudest at the right upper sternal border) systolic GI Inspection: normal to inspection, no abdominal wall ecchymosis, non-distended, obesity and scar Palpation: soft, no hepatosplenomegaly and No guarding Percussion: normal to percussion Auscultation: normal bowel sounds Back/Spine/Pelvis Back: normal to inspection, back tenderness, No ecchymosis and No erythema Cervical Spine: cervical ROM normal Thoracic/Lumbar Spine: thoracic and lumbar spine normal to inspection, thoraco- lumbar ROM normal and paraspinal tenderness (Left side) Skin General: no rashes or lesions noted, elasticity normal and turgor normal Neuro General: patient alert, patient awake and patient oriented x3 Cranial Nerves: CN's II-XI intact bilaterally Cognition: normal cognition Speech: speech normal Gait: normal gait Motor: muscle tone normal throughout, strength 5/5 throughout, no pronator drift and no movement abnormalities noted Sensory Exam: no sensory deficits noted Plantar Reflexes: Downgoing: bilateral Other: Normal [id number], normal heel kelly. Negative Romberg, no pronator drift. Extrem Other: Full weightbear, moves all extremities well, symmetric. Atraumatic. No focal bony tenderness to her shoulders, clavicles, upper extremities, lower extremities, pelvic rock is negative. Course Orders Ordered: ED Orders 08/24/24 13:51 CT cervical spine wo con Stat CT head/brain wo con Stat 08/24/24 15:11 EKG-12 Lead Stat 08/24/24 15:19 CBC Auto Diff [Complete Blood Count AUTO DIFF] Stat CMP [Comprehensive Metabolic Panel] Stat Prothrombin Time INR Stat Troponin I Stat 08/24/24 15:31 XR chest 1V Stat Consultations Consultation #1: Discussed this patient with the attending Dr. Ravi, and reviewed current ECG as well as last years, her laboratory results are all normal. Patient is cleared for discharge. Vital Signs Vital signs: Vital Signs - 8 hr 08/24/24 13:43 08/24/24 15:50 Temperature 97.6 F Pulse Rate 60 60 Respiratory Rate 16 14 Blood Pressure 185/82 H 164/75 H Pulse Oximetry 97 97 Oxygen Delivery Method Room Air Room Air MDM - Fall Lab Data Lab results narrative: CBC normal, CMP normal, PT/INR PT 14.9 normal with Eliquis, Troponin negative. 08/24/24 15:19 08/24/24 15:19 Labs: Lab Results 08/24/24 Range/Units 15:19 WBC 10.4 (4.5-11.0) X10^3/uL RBC 4.32 (4.0-5.2) X10^6/uL Hgb 13.1 (12.0-16.0) g/dL Hct 39.1 (36-46) % MCV 90.7 (80-100) fL MCH 30.4 (26-34) PG MCHC 33.5 (30-36) % RDW 13.9 (11.6-14.8) % Plt Count 182 (150-400) X10^3/uL Neut % (Auto) 70.2 (50-75) % Lymph % (Auto) 16.4 L (25-40) % [place] % (Auto) 10.8 (3-14) % Eos % (Auto) 2.2 (2-4) % Baso % (Auto) 0.4 (0-2) % Neut # (Auto) 7300 H (1232-1346) /uL Lymph # (Auto) 1700 (4530-6456) /uL [place] # (Auto) 1100 H (0-900) /uL Eos # (Auto) 200 (0-450) /uL Baso # (Auto) 0 (0-100) /uL PT 14.9 H (9.4-12.5) SECONDS INR 1.3 (0.9-1.3) Sodium 139 (137-145) mmol/L Potassium 4.2 (3.4-5.1) mmol/L Chloride 103 (98-107) mmol/L Carbon Dioxide 30 (22-32) mmol/L BUN 15 (7-17) mg/dL Creatinine 0.69 (0.52-1.04) mg/dL Estimated GFR > 60 (>60) mL/min BUN/Creatinine Ratio 21.7 (6-22) Glucose 122 H (80-110) mg/dL Calcium 9.5 (8.4-10.2) mg/dL Total Bilirubin 0.4 (0.2-1.3) mg/dL AST 21 (14-36) IU/L ALT 16 (<35) IU/L Alkaline Phosphatase 77 (38-126) U/L Troponin I < 0.012 (0.01-0.034) ng/mL Total Protein 7.3 (6.3-8.2) g/dL Albumin 4.2 (3.5-5.0) g/dL Globulin 3.1 (1.7-4.1) g/dL Albumin/Globulin Ratio 1.4 (1.0-2.8) Imaging Data CT scan - head: My Impression: Deferred to radiologist's interpretation below. Radiologist's Impression: PROCEDURE: CT HEAD/BRAIN WO CON INDICATIONS: fall/hit head/on thinners/No LOC TECHNIQUE: Noncontrast 4.5 mm thick angled axial sections acquired from the foramen magnum to the vertex, with coronal and sagittal reformats. For radiation dose reduction, the following was used: automated exposure control, adjustment of mA and/or kV according to patient size. COMPARISON: [facility], CT, CT HEAD/BRAIN WO CON, 09/01/2023, 15:48. FINDINGS: Image quality: Diagnostic. CSF spaces: Basal cisterns are patent. No extra-axial fluid collections. The ventricles are symmetric in size and shape. Brain: No intracranial bleeds or masses. There is cerebral volume loss for age, with resultant ventricular and sulcal prominence. There are periventricular and deep white matter chronic small vessel ischemic changes. There is intracranial internal carotid artery atherosclerosis. Skull and face: Calvarium and visualized facial bones appear intact, without suspicious lesions. Sinuses: Small air-fluid level, right maxillary sinus, similar to previous. IMPRESSION: No acute intracranial pathology. Right maxillary sinus disease. Dictated by: Arian Malhotra M.D. on 08/24/2024 at 14:58 Approved by: Arian Malhotra M.D. on 08/24/2024 at 14:59 CT - cervical spine: My Impression: Deferred to radiologist's interpretation below. Radiologist's Impression: PROCEDURE: CT CERVICAL SPINE WO CON INDICATIONS: fall/hit head/on thinners/No LOC TECHNIQUE: Noncontrast 3 mm thick sections acquired from the skull base to the T4 level. Sagittal and coronal reformats were then constructed. For radiation dose reduction, the following was used: automated exposure control, adjustment of mA and/or kV according to patient size. COMPARISON: [facility], CT, CT CERVICAL SPINE WITHOUT CONTRAST, 08/06/2023, 11:11. FINDINGS: Image quality: Excellent. Bones: No fractures or dislocations. Visualized superior ribs are intact. Severe cervical spondylosis. Prominent pannus with associated calcifications at C1-C2 anterior articulation. Multilevel disc osteophyte complexes and multilevel canal stenosis and multilevel bony foraminal narrowing. Soft tissues: Prevertebral soft tissues are normal in thickness. No paravertebral hematomas. No apical pneumothoraces. IMPRESSION: No displaced fracture or traumatic subluxation. Severe cervical spondylosis. Dictated by: Arian Malhotra M.D. on 08/24/2024 at 14:54 Approved by: Arian Malhotra M.D. on 08/24/2024 at 14:57 Chest x-ray: My Impression: Deferred to radiologist's interpretation below. Radiologist's Impression: PROCEDURE: XR CHEST 1V INDICATIONS: fall with chest pain TECHNIQUE: One view of the chest was acquired. COMPARISON: None. FINDINGS: Surgical changes and devices: Left chest wall pacemaker leads are in the region of right atrium and right ventricle. Lungs and pleura: Lungs are clear. No pleural effusions or pneumothorax. Mediastinum: Mediastinal contours appear normal. Heart size is enlarged. Bones and chest wall: No suspicious bony lesions. Overlying soft tissues appear unremarkable. IMPRESSION: No acute cardiopulmonary pathology. Dictated by: Robert Arnold M.D. on 08/24/2024 at 16:00 Approved by: Robert Arnold M.D. on 08/24/2024 at 16:00 ECG Data Interpretation: Atrial paced rhythm with prolonged AV conduction, ventricular rate 60 beats per minute, VT interval is 224 milliseconds. Machine interpretation states nonspecific intraventricular block, can not rule out septal infarct, age undetermined, marked T-wave abnormality, consider inferior ischemia, abnormal EKG. Comparison is made to prior tracing September 01, 2023 showed an atrial paced rhythm with prolonged AV conduction, anterior infarct, age undetermined ventricular rate of 60, VT interval was 216 ms. Discussed these findings with the attending Dr. Ravi who reviewed both studies. MDM Narrative Medical decision making narrative: Mechanical fall 2 days ago, no precipitating events, CT of the brain and cervical spine are without any acute abnormalities. Her blood work today is normal, negative troponin. She has in a paced rhythm she has not in AFib today. Believe she has some soft tissue injuries from her fall peaking at 2 days following the initial injury. There are no focal neurologic deficits on examination, no bony tenderness throughout. Likely strain of the thoracic back, pain is reproducible. Discussed these findings with the patient, she does have family with her, avoid against fall. She is reviewed red flag warning signs and will seek medical attention if any thing changes, or she develops any new worrisome symptoms. Please do follow up with your PCP sometimes physical therapy can be helpful and requires referral. Discharge Plan Departure Patient Disposition: Home Clinical Impression: Back pain, thoracic Qualifiers: Chronicity: acute Back pain laterality: bilateral Qualified Code(s): M54.6 - Pain in thoracic spine Fall Qualifiers: Encounter type: initial encounter Qualified Code(s): W19.XXXA - Unspecified fall, initial encounter Instructions: Contusion, DI for Thoracic Back Pain Activity Restrictions/Additional Instructions: Please do apply ice in addition to your heating pad I think this will give you some better pain relief, your CT scan today was negative, your blood work was also normal and negative, your ECG showed your pacemaker to be working just fine. Pain usually peaks 2 days following an injury, you should have some gradual improvement over the next 1-2 weeks. I would like you to follow up with your primary care provider this week, or the earliest next available. If you have any new symptoms or any worrisome symptoms to please return to the emergency department. Prescriptions: No Action telmisartan 20 mg Tablet 20 mg PO DAILY furosemide 20 mg Tablet 20 mg PO DAILY metoprolol succinate 25 mg Tablet Extended Release 24 Hr 25 mg PO BID dofetilide 500 mcg Capsule 500 mcg PO Q12H Patient Comments: Pt takes at 0900 & 2100 metformin 750 mg Tablet Extended Release 24 Hr 750 mg PO DAILY Eliquis 5 mg Tablet 5 mg PO BID potassium chloride 20 mEq Tablet Extended Release 20 meq PO DAILY magnesium oxide 400 mg magnesium Tablet 800 mg PO DAILY polyethylene glycol 3350 17 gram Powder In Packet 17 gm PO DAILY PRN (Reason: Constipation) Qty: 20 0RF ibuprofen 400 mg Tablet 400 mg PO Q4HR Qty: 60 0RF oxycodone 10 mg Tablet 10 mg PO Q3HR PRN (Reason: Pain, Severe (7-10)) Qty: 60 0RF oxycodone 5 mg tablet 5 mg PO Q3H PRN (Reason: pain) Qty: 60 0RF meclizine 25 mg tablet 25 mg PO QID Qty: 30 0RF Referrals: Antonia Urbano MD [Primary Care Provider] - Stand Alone Forms: Patient Portal/API
--- NOTE | 2024-08-24 15:11 | EKG_ITS ---
[address] [address] Test Date: 2024-08-24 Pat Name: Elsie Cavanaugh Department: [facility] Room: Gender: Female Digital Solution Architect: MATEO : 1945 Requested By: Order Number: [id number] Reading MD: Chung Avalos Measurements Intervals Lindsey Rate: 60 P: 92 TX: 224 QRS: 88 QRSD: 142 T: -49 QT: 486 QTc: 486 Interpretive Statements Atrial-paced rhythm with prolonged AV conduction Nonspecific intraventricular block Cannot rule out Septal infarct , age undetermined Marked T wave abnormality, consider inferior ischemia Electronically Signed On 08-24-2024 18:10:13 PDT by Chung Avalos
[2024-08-24 15:31] LABS: Add Manual Diff / Slide Review NO; Basophils Absolute Auto 0 /uL (0-100); Basophils Percent Auto 0.4 % (0-2); Eosinophils Absolute Auto 200 /uL (0-450); Eosinophils Percent Auto 2.2 % (2-4); Hematocrit 39.1 % (36-46); Hemoglobin 13.1 g/dL (12.0-16.0); Lymphocytes Absolute Auto 1700 /uL (1100-4500); Lymphocytes Percent Auto 16.4 % (25-40); Mean Corpuscular HGB Conc 33.5 % (30-36); Mean Corpuscular Hemoglobin 30.4 PG (26-34); Mean Corpuscular Volume 90.7 fL (80-100); Monocytes Absolute Auto 1100 /uL (0-900); Monocytes Percent Auto 10.8 % (3-14); Neutrophils Absolute Auto 7300 /uL (1500-7000); Neutrophils Percent Auto 70.2 % (50-75); Platelet Count 182 X10^3/uL (150-400); Red Blood Cell Count 4.32 X10^6/uL (4.0-5.2); Red Cell Distribution Width 13.9 % (11.6-14.8); White Blood Cell Count 10.4 X10^3/uL (4.5-11.0)
--- NOTE | 2024-08-24 15:31 | DI.RAD.S_ITS ---
PROCEDURE: XR CHEST 1V INDICATIONS: fall with chest pain TECHNIQUE: One view of the chest was acquired. COMPARISON: None. FINDINGS: Surgical changes and devices: Left chest wall pacemaker leads are in the region of right atrium and right ventricle. Lungs and pleura: Lungs are clear. No pleural effusions or pneumothorax. Mediastinum: Mediastinal contours appear normal. Heart size is enlarged. Bones and chest wall: No suspicious bony lesions. Overlying soft tissues appear unremarkable. IMPRESSION: No acute cardiopulmonary pathology. Dictated by: Robert Arnold M.D. on 08/24/2024 at 16:00 Approved by: Robert Arnold M.D. on 08/24/2024 at 16:00
[2024-08-24 15:42] LABS: INR 1.3 (0.9-1.3); Prothrombin Time 14.9 SECONDS (9.4-12.5)
[2024-08-24 15:46] LABS: Alanine Aminotransferase 16 IU/L (<35); Albumin 4.2 g/dL (3.5-5.0); Albumin Globulin Ratio 1.4 (1.0-2.8); Alkaline Phosphatase 77 U/L (38-126); Aspartate Aminotransferase 21 IU/L (14-36); BUN Creatinine Ratio 21.7 (6-22); Bilirubin Total 0.4 mg/dL (0.2-1.3); Blood Urea Nitrogen 15 mg/dL (7-17); Calcium 9.5 mg/dL (8.4-10.2); Carbon Dioxide 30 mmol/L (22-32); Chloride 103 mmol/L (98-107); Estimated Glomerular Filt Rate > 60 mL/min (>60); Globulin 3.1 g/dL (1.7-4.1); Glucose 122 mg/dL (80-110); HEMOLYSIS < 15 (0-50); Potassium 4.2 mmol/L (3.4-5.1); Sodium 139 mmol/L (137-145); Total Protein 7.3 g/dL (6.3-8.2)
[2024-08-24 15:50] VITALS: BP 164/75; PULSE 60; RESP 14; O2SAT 97
[2024-08-24 15:57] LABS: Troponin I < 0.012 ng/mL (0.01-0.034)
--- NOTE | 2024-08-24 16:04 | PC.NURSE ---
Patient is a 79 y/o female who is a&O x4 with a baseline of minor aches and pains in her knees, and other body locations which she can normally walk off during the course of the day. She fell on Thursday night after slipping on something and needed help from her son to get up due to what she states was being in a difficult position to get herself up. Since the fall she states her head hurts from when she hit it, her right arm hurts, and her chest hurts as well as her normal aches have gotten worse since she has been taking it easy since the fall and not walking too much.
[2024-08-24 17:40] VITALS: BP 164/78; PULSE 77; RESP 16; O2SAT 98
== END 2024-08-24 17:48 | disposition home or self-care (01) ==
PROVIDERS: Emergency Provider Physician Assistant Medical; PCP Internal Medicine
DX: M54.6 Pain in thoracic spine (principal); R07.9 Chest pain, unspecified; S09.90XA Unspecified injury of head, initial encounter; W01.0XXA Fall on same level from slipping, tripping and stumbling without subsequent striking against object, initial encounter; Z79.01 Long term (current) use of anticoagulants; I10 Essential (primary) hypertension; E11.9 Type 2 diabetes mellitus without complications; Z95.2 Presence of prosthetic heart valve; I48.91 Unspecified atrial fibrillation; I25.2 Old myocardial infarction
CPT/HCPCS: 36415; 70450; 71045; 72125; 80053; 84484; 85025; 85610; 93005; 99284